=== PATIENT | female | born 1965 | race Caucasian/White ===

== ENCOUNTER 2023-01-16 15:34 | Outpatient (REF) | payer OTHER, SELFPAY ==
--- NOTE | 2023-01-16 15:44 | EMG_ITS ---
Chief complaint: Acute onset right hand numbness. Followed 1 month after by right foot numbness. She denies significant neck or lower back pain. Had recent right Carpal Tunnel Syndrome injection which resolved hand numbness. Reason for referral: Evaluate for Carpal Tunnel Syndrome, evaluate for peroneal neuropathy or radiculopathy. Referred by: Dr. Cortés Procedure done: Right upper extremity and right lower extremity NCS/EMG Precautions and/or limitations: None The limb temperature was monitored continuously and remained between 32-36 degrees C during the performance of the NCS. Nerve Conduction Studies Anti Sensory Summary Table ?Stim Site NR Onset (ms) Norm Onset (ms) Peak (ms) Norm Peak (ms) O-P Amp (?V) Norm O-P Amp Site1 Site2 Delta-0 (ms) Dist (cm) Efrain (m/s) Norm Efrain (m/s) Right Median Anti Sensory (2nd Digit) Wrist ? 3.2 3.8 <3.6 1.3 >10 Wrist 2nd Digit 3.2 14.0 44 Right Radial Anti Sensory (Thumb) Forearm ? 1.6 2.1 <3.1 39.2 Forearm Thumb 1.6 0.0 Right Sural Anti Sensory (Lat Mall) Calf ? 3.2 3.7 <4.0 21.5 >5.0 Calf Lat Mall 3.2 14.0 44 Right Ulnar Anti Sensory (5th Digit) Wrist ? 2.4 2.9 <3.7 60.0 >15.0 Wrist 5th Digit 2.4 14.0 58 Motor Summary Table ?Stim Site NR Onset (ms) Norm Onset (ms) O-P Amp (mV) Norm O-P Amp iAmp (mV) Amp (1st) (%) Site1 Site2 Delta-0 (ms) Dist (cm) Efrain (m/s) Norm Efrain (m/s) Right Median Motor (Abd Poll Brev) Wrist ? 4.2 <3.9 4.9 >4.5 5.9 100.0 Elbow Wrist 3.6 20.5 57 >45 Elbow ? 7.8 4.6 5.6 93.9 Right Peroneal Motor (Ext Dig Brev) Ankle ? 3.4 <4.0 8.9 >2.5 11.9 100.0 Ankle Ext Dig Brev 3.4 0.0 B Fib ? 9.1 8.4 10.7 94.4 B Fib Ankle 5.7 30.5 54 >40 Poplt ? 9.3 8.1 10.4 91.0 Poplt B Fib 0.2 3.5 175 >40 Right Tibial Motor (Abd Fang Brev) Ankle ? 3.5 <5 4.9 >2.5 7.2 100.0 Ankle Abd Fang Brev 3.5 0.0 Knee ? 9.7 3.8 5.4 77.6 Knee Ankle 6.2 32.5 52 >40 Right Ulnar Motor (Abd Dig Minimi) Wrist ? 3.0 <3.0 7.4 >5 8.8 100.0 B Elbow Wrist 2.3 19.5 85 >45 B Elbow ? 5.3 6.5 8.2 87.8 A Elbow B Elbow 1.6 10.0 62 >45 A Elbow ? 6.9 7.4 9.3 100.0 EMG ?Side Muscle Nerve Root Ins Act Fibs Psw Amp Dur Poly Recrt Int Pat Comment Right AbdHallucis MedPlantar S1-2 Nml Nml Nml Nml Nml 0 Nml Complete Right AntTibialis Dp Br Peron L4-5 Nml Nml Nml Nml Nml 0 Nml Complete Right PostTibialis Tibial L5, S1 Nml Nml Nml Nml Nml 0 Nml Complete Right MedGastroc Tibial S1-2 Nml Nml Nml Nml Nml 0 Nml Complete Right VastusMed Femoral L2-4 Nml Nml Nml Nml Nml 0 Nml Complete Right 1stDorInt Ulnar C8-T1 Nml Nml Nml Nml Nml 0 Nml Complete Right FlexCarRad Median C6-7 Nml Nml Nml Nml Nml 0 Nml Complete Right Biceps Musculocut C5-6 Nml Nml Nml Nml Nml 0 Nml Complete Right Triceps Radial C6-7-8 Nml Nml Nml Nml Nml 0 Nml Complete Right Deltoid Axillary C5-6 Nml Nml Nml Nml Nml 0 Nml Complete Paraspinal EMG ?Side Muscle Nerve Root Ins Act Fibs Psw Comment Right Lumbar Upper Rami Nml Nml Nml Right Lumbar Mid Rami Nml Nml Nml Right Lumbar Lower Rami Nml Nml Nml Right Cervical Upper Rami Nml Nml Nml Right Cervical Mid Rami Nml Nml Nml Right Cervical Lower Rami Nml Nml Nml FINDINGS: Right median motor nerve showed prolonged distal latency, normal amplitude and normal conduction velocity. Right ulnar sensory nerve showed prolonged peak latency. All other nerves tested were within normal. Concentric needle EMG was performed in selected muscles of the right upper extremity and cervical paraspinals, right lower extremity and lumbar paraspinals. Study did not reveal signs of electric abnormalities as shown in the table below. IMPRESSION: 1. This is an abnormal study. 2. There is electrodiagnostic evidence for right moderate-severe median neuropathy at the wrist, consistent with Carpal Tunnel Syndrome. 3. There is no electrodiagnostic evidence for ulnar neuropathy, brachial plexopathy, cervical radiculopathy. peroneal neuropathy, tibial neuropathy. lumbosacral plexopathy, lumbar radiculopathy, or peripheral neuropathy. Thank you for your kind referral. Sandy Fields MD, RUBEN Board Certified, [place] [employer] and [employer] (ABPMR) Board Certified, [place] [employer] Electro[employer] (ABEM) MTDD
== END 2023-01-16 15:35 | disposition home or self-care (01) ==
LOC: HO.NEURO 15:34
PROVIDERS: PCP Physician Assistant; Visit Provider Internal Medicine
DX: R20.2 Paresthesia of skin (principal)
CPT/HCPCS: 95886; 95910